=== PATIENT | male | born 1945 | race African-American/Black ===

== ENCOUNTER 2022-01-28 14:48 | Inpatient (IN) | payer OTHER ==
[~2022-01-28] VITALS: Ht 180.3 cm; Wt 86.2 kg
[2022-01-28] MEDS ORDERED: FUROSEMIDE 100MG/10ML VIAL IVP ONE (15:30)
[2022-01-28 16:57] LABS: HEMATOCRIT. 25.1 % (42.0-52.0); HEMOGLOBIN. 7.2 g/dL (14.0-18.0); MEAN CORPUSCULAR HEMOGLOBIN 24.7 pg (28.0-32.0); MEAN CORPUSCULAR VOLUME 85.8 fL (80.0-94.0); MEAN PLATELET VOLUME 8.3 fl (7.4-10.4); PLATELET 504 x1000/uL (130-400); RED BLOOD CELL COUNT 2.93 mill/uL (4.7-6.1); RED CELL DISTRIBUTION WIDTH 19.3 % (11.6-14.6)
[2022-01-28 17:04] LABS: CHLORIDE 104 mEq/L (98-107)
[2022-01-28] MEDS ORDERED: SODIUM CHLORIDE 0.9% 500 ML IV ONE (17:15)
[2022-01-28] MEDS ORDERED: AZITHROMYCIN 500 MG in DEXT 5% WATER 250 ML IV SCH (17:15)
[2022-01-28] MEDS ORDERED: CEFTRIAXONE 1 G PREMIX 50 ML IV ONE (17:15)
[2022-01-28] MEDS ORDERED: VANCOMYCIN 1G PREMIX 200 ML IV SCH (17:30)
[2022-01-28] MEDS ORDERED: SODIUM CHLORIDE 0.9% 1,000 ML IV ONE (17:30)
[2022-01-28] MEDS ORDERED: PIPERACILLIN/TAZOBACTAM 3.375GM/50ML PREMIX IV ONE (18:00)
[2022-01-28] MEDS ORDERED: PIPERACILLIN/TAZ 3.375G PREMIX 50 ML IV NR (18:15)
[2022-01-28 20:18] LABS: PLATELET ESTIMATE INCREASED
[2022-01-28 21:30] VITALS: BP 111/61
[2022-01-28 22:00] VITALS: BP 132/61
[2022-01-28] MEDS ORDERED: DIGOXIN 500MCG/2ML AMP IV NR (23:00)
[2022-01-28] MEDS ORDERED: ACETAMINOPHEN 325MG TABLET PO PRN (23:00)
[2022-01-28] MEDS: PIPERACILLIN/TAZOBACTAM 3.375 G in DEXTROSE 5% WATER 50 ML IV SCH (23:26)
[2022-01-28 23:28] LABS: BG BASE EXCESS -5.9 mmol/L (-2.0-2.0); BG CARBOXYHEMOGLOBIN 0.8 % (0.5-1.5); BG FRACTION INSPIRED OXYGEN 28; BG HCO3 ACT 16.7 mmol/L (22.0-26.0); BG METHEMOGLOBIN 0.2 % (0.0-1.5); BG OXYGEN SATURATION 93.9 % (92.0-98.5); BG PO2 71.9 mmHg (75.0-100.0); BG SAMPLE SITE RIGHT RADIAL; BG TOTAL HEMOGLOBIN 7.2 g/dL (12.0-18.0); BG VENT MODE NASAL CANNULA
[2022-01-28] MEDS: DEXT 5%/0.45% NACL 500ML 1,000 ML IV SCH (23:28)
[2022-01-28 23:30] LABS: HEMATOCRIT. 23.2 % (42.0-52.0); MEAN CORPUSCULAR HEMOGLOBIN 25.4 pg (28.0-32.0); MEAN CORPUSCULAR VOLUME 85.1 fL (80.0-94.0); MEAN PLATELET VOLUME 8.3 fl (7.4-10.4); PLATELET 459 x1000/uL (130-400); RED BLOOD CELL COUNT 2.73 mill/uL (4.7-6.1); RED CELL DISTRIBUTION WIDTH 19.1 % (11.6-14.6)
[2022-01-28] MEDS ORDERED: ENOXAPARIN 80MG/0.8ML SYR SUBCUT NR (23:30)
[2022-01-28 23:40] LABS: HEMOGLOBIN. 6.9 g/dL (14.0-18.0)
[2022-01-29] VITALS (17 sets, daily range): BP systolic 100–149; BP diastolic 53–97
[2022-01-29 00:15] LABS: T4 FREE 1.49 ng/dL (0.76-1.46)
[2022-01-29 02:19] LABS: INR 1.6; PROTHROMBIN TIME 16.1 sec (9.6-11.0)
[2022-01-29 02:31] LABS: PLATELET ESTIMATE INCREASED
[2022-01-29] MEDS: IPRATROPIUM/ALBUTEROL 0.5-3(2.5)MG/3ML NEB HHN SCH ×5 (05:19→20:08)
[2022-01-29] MEDS: PIPERACILLIN/TAZOBACTAM 3.375 G in DEXTROSE 5% WATER 50 ML IV SCH ×3 (05:58→21:15)
[2022-01-29] MEDS: PANTOPRAZOLE SODIUM 40 MG/VIAL IV SCH (08:40)
[2022-01-29] MEDS: AZITHROMYCIN 500 MG in DEXT 5% WATER 250 ML IV SCH (08:41)
[2022-01-29] MEDS ORDERED: ASPIRIN 81MG TABLET PO SCH (09:00)
[2022-01-29] MEDS ORDERED: NALOXONE HCL 0.4MG/ML VIAL IV PRN (13:45)
[2022-01-29] MEDS ORDERED: DEXTROSE 50% WATER 50ML SYRINGE IV PRN (14:15)
[2022-01-29] MEDS: DEXT 5%/0.45% NACL 500ML 1,000 ML IV SCH (15:12)
[2022-01-29] MEDS: BLOOD SUGAR DIAGNOSTIC STRIP TEST SCH ×2 (17:22→20:09)
[2022-01-29] MEDS: DILTIAZEM HCL 30MG TABLET PO SCH ×2 (17:28→23:30)
[2022-01-29] MEDS: INSULIN LISPRO 100 UNITS/ML SUBCUT SCH ×2 (17:29→21:15)
[2022-01-29] MEDS ORDERED: INSULIN LISPRO 100 UNITS/ML SUBCUT NR (17:30)
[2022-01-29] MEDS ORDERED: INSULIN LISPRO 100 UNITS/ML SUBCUT SCH (18:00)
[2022-01-29 18:28] LABS: HEMATOCRIT 25.3 % (42.0-52.0); HEMOGLOBIN 7.2 g/dL (14.0-18.0); MEAN CORPUSCULAR HEMOGLOBIN 25.8 pg (28.0-32.0); PLATELET 415 x1000/uL (130-400); RED CELL DISTRIBUTION WIDTH 19.2 % (11.6-14.6)
[2022-01-29] MEDS ORDERED: DEXT 5%/0.45% NACL 1000ML 1,000 ML IV SCH (18:30)
[2022-01-29 20:02] LABS: CLARITY URINE CLEAR (CLEAR); COLOR URINE YELLOW (YELLOW); KETONES URINE TRACE (NEGATIVE); LEUKOCYTE ESTERASE URINE NEGATIVE (NEGATIVE); NITRITE URINE NEGATIVE (NEGATIVE); OCCULT BLOOD URINE TRACE (NEGATIVE); PH URINE 5.5 (4.5-8.0); PROTEIN URINE 2+ (NEGATIVE); SPECIFIC GRAVITY URINE 1.016 (1.005-1.030); UROBILINOGEN URINE 0.2 E.U./dL (0.2-1.0)
[2022-01-29] MEDS: SODIUM CHLORIDE 0.45% 1,000 ML IV SCH (20:16)
[2022-01-29] MEDS ORDERED: ENOXAPARIN 80MG/0.8ML SYR SUBCUT SCH (23:30)
[2022-01-30] VITALS (16 sets, daily range): BP systolic 100–125; BP diastolic 52–67
[2022-01-30] MEDS: IPRATROPIUM/ALBUTEROL 0.5-3(2.5)MG/3ML NEB HHN SCH ×7 (00:48→23:42)
[2022-01-30] MEDS: PIPERACILLIN/TAZOBACTAM 3.375 G in DEXTROSE 5% WATER 50 ML IV SCH ×2 (05:35→13:06)
[2022-01-30] MEDS: SODIUM CHLORIDE 0.45% 1,000 ML IV SCH ×2 (05:35→17:57)
[2022-01-30] MEDS: DILTIAZEM HCL 30MG TABLET PO SCH ×3 (05:36→17:58)
[2022-01-30 05:47] LABS: FERRITIN 364 ng/mL (22-322)
[2022-01-30 05:52] LABS: CHLORIDE 103 mEq/L (98-107)
[2022-01-30 05:59] LABS: HEPATITIS B SURFACE ANTIGEN NEGATIVE
[2022-01-30 06:13] LABS: CREATINE KINASE 40 IU/L (39-308); GAMMA GLUTAMYL TRANSPEPTIDASE 77 IU/L (11-50); PHOSPHORUS 3.1 mg/dL (2.5-4.9)
[2022-01-30] MEDS ORDERED: MAGNESIUM 2 G PREMIX 50 ML IV ONE (06:45)
[2022-01-30 06:50] LABS: HEMATOCRIT. 28.7 % (42.0-52.0); MEAN CORPUSCULAR HEMOGLOBIN 26.2 pg (28.0-32.0); MEAN CORPUSCULAR VOLUME 83.7 fL (80.0-94.0); MEAN PLATELET VOLUME 8.3 fl (7.4-10.4); PLATELET 461 x1000/uL (130-400); RED BLOOD CELL COUNT 3.43 mill/uL (4.7-6.1); RED CELL DISTRIBUTION WIDTH 17.3 % (11.6-14.6)
[2022-01-30] MEDS ORDERED: MAGNESIUM SULFATE 3 GM in SODIUM CHLORIDE 0.9% 100 ML IV SCH (08:00)
[2022-01-30] MEDS: BLOOD SUGAR DIAGNOSTIC STRIP TEST SCH ×4 (08:24→20:50)
[2022-01-30] MEDS: AZITHROMYCIN 500 MG in DEXT 5% WATER 250 ML IV SCH (08:53)
[2022-01-30] MEDS: PANTOPRAZOLE SODIUM 40 MG/VIAL IV SCH (08:53)
[2022-01-30] MEDS: INSULIN LISPRO 100 UNITS/ML SUBCUT SCH ×4 (09:07→20:50)
[2022-01-30 10:42] LABS: PLATELET ESTIMATE INCREASED
[2022-01-30] MEDS ORDERED: CEFTRIAXONE 1 G PREMIX 50 ML IV SCH (14:30)
[2022-01-30 15:24] LABS: TOTAL IRON BINDING CAPACITY 151 ug/dL (250-450)
[2022-01-30 17:10] LABS: VITAMIN B12 SERUM > 2000 pg/mL (211-911)
[2022-01-30] MEDS ORDERED: LACTULOSE 20G/30ML UDC PO NR (17:15)
[2022-01-30] MEDS: METRONIDAZOLE 500MG TABLET PO SCH (20:49)
[2022-01-30] MEDS: CEFTRIAXONE 1,000 MG in DEXTROSE 5% WATER 50 ML IV SCH (20:49)
[2022-01-31] VITALS (17 sets, daily range): BP systolic 63–153; BP diastolic 47–74
[2022-01-31] MEDS: DILTIAZEM HCL 30MG TABLET PO SCH ×5 (00:34→23:20)
[2022-01-31] MEDS: SODIUM CHLORIDE 0.45% 1,000 ML IV SCH (00:34)
[2022-01-31] MEDS: IPRATROPIUM/ALBUTEROL 0.5-3(2.5)MG/3ML NEB HHN SCH ×4 (03:54→21:06)
[2022-01-31] MEDS: HYDROCODONE/ACETAMINOPHEN 5/325MG TABLET PO PRN (05:03)
[2022-01-31 05:53] LABS: HEMATOCRIT. 25.8 % (42.0-52.0); HEMOGLOBIN. 8.3 g/dL (14.0-18.0); MEAN CORPUSCULAR HEMOGLOBIN 26.7 pg (28.0-32.0); MEAN CORPUSCULAR VOLUME 82.9 fL (80.0-94.0); MEAN PLATELET VOLUME 8.1 fl (7.4-10.4); PLATELET 453 x1000/uL (130-400); RED BLOOD CELL COUNT 3.11 mill/uL (4.7-6.1); RED CELL DISTRIBUTION WIDTH 17.7 % (11.6-14.6)
[2022-01-31 06:07] LABS: PHOSPHORUS 3.5 mg/dL (2.5-4.9)
[2022-01-31] MEDS: METRONIDAZOLE 500MG TABLET PO SCH ×2 (08:06→20:40)
[2022-01-31] MEDS: AZITHROMYCIN 500 MG in DEXT 5% WATER 250 ML IV SCH (08:06)
[2022-01-31] MEDS: PANTOPRAZOLE SODIUM 40 MG/VIAL IV SCH (08:07)
[2022-01-31] MEDS: INSULIN LISPRO 100 UNITS/ML SUBCUT SCH ×4 (08:08→20:41)
[2022-01-31] MEDS: BLOOD SUGAR DIAGNOSTIC STRIP TEST SCH ×4 (08:08→21:00)
[2022-01-31] MEDS ORDERED: POTASSIUM CHLORIDE 20MEQ/PACKET PO SCH (09:00)
[2022-01-31 09:07] LABS: IMMUNOGLOBULIN A 387 mg/dL (61-437); IMMUNOGLOBULIN G 1121 mg/dL (603-1613); IMMUNOGLOBULIN M 77 mg/dL (15-143)
[2022-01-31] MEDS ORDERED: MAGNESIUM 2 G PREMIX 50 ML IV SCH (10:00)
[2022-01-31] MEDS: SODIUM CHLORIDE 0.9% 1,000 ML IV SCH ×2 (11:46→23:20)
[2022-01-31 12:54] LABS: NUCLEATED RED BLOOD CELLS 1 /100 WBC; PLATELET ESTIMATE INCREASED
[2022-01-31] MEDS: CEFTRIAXONE 1,000 MG in DEXTROSE 5% WATER 50 ML IV SCH (20:40)
[2022-02-01] VITALS (12 sets, daily range): BP systolic 101–144; BP diastolic 55–73
[2022-02-01] MEDS: IPRATROPIUM/ALBUTEROL 0.5-3(2.5)MG/3ML NEB HHN SCH ×6 (00:54→20:47)
[2022-02-01] MEDS: DILTIAZEM HCL 30MG TABLET PO SCH ×4 (05:32→23:43)
[2022-02-01 05:58] LABS: HEMATOCRIT. 25.8 % (42.0-52.0); HEMOGLOBIN. 8.3 g/dL (14.0-18.0); MEAN CORPUSCULAR HEMOGLOBIN 26.5 pg (28.0-32.0); MEAN CORPUSCULAR VOLUME 82.3 fL (80.0-94.0); MEAN PLATELET VOLUME 8.1 fl (7.4-10.4); PLATELET 488 x1000/uL (130-400); RED BLOOD CELL COUNT 3.14 mill/uL (4.7-6.1); RED CELL DISTRIBUTION WIDTH 17.4 % (11.6-14.6)
[2022-02-01] MEDS: HYDROCODONE/ACETAMINOPHEN 5/325MG TABLET PO PRN (08:23)
[2022-02-01] MEDS: BLOOD SUGAR DIAGNOSTIC STRIP TEST SCH ×4 (08:23→20:50)
[2022-02-01] MEDS: AZITHROMYCIN 500 MG in DEXT 5% WATER 250 ML IV SCH (08:23)
[2022-02-01] MEDS: METRONIDAZOLE 500MG TABLET PO SCH ×2 (08:23→20:50)
[2022-02-01] MEDS: PANTOPRAZOLE SODIUM 40 MG/VIAL IV SCH (08:24)
[2022-02-01] MEDS: INSULIN LISPRO 100 UNITS/ML SUBCUT SCH ×4 (08:42→20:49)
[2022-02-01 09:10] LABS: PLATELET ESTIMATE INCREASED
[2022-02-01] MEDS: SODIUM CHLORIDE 0.9% 1,000 ML IV SCH ×2 (12:38→23:43)
[2022-02-01 13:11] LABS: HIV SCREEN 4G Non Reactive (Non Reactive)
[2022-02-01] MEDS: CEFTRIAXONE 1,000 MG in DEXTROSE 5% WATER 50 ML IV SCH (20:50)
[2022-02-01] MEDS ORDERED: EPOETIN ALFA-EPBX 4,000 UNIT/ML VIAL SUBCUT NR (21:00)
[2022-02-02] VITALS (7 sets, daily range): BP systolic 107–119; BP diastolic 58–70
[2022-02-02] MEDS: IPRATROPIUM/ALBUTEROL 0.5-3(2.5)MG/3ML NEB HHN SCH ×6 (01:11→20:29)
[2022-02-02] MEDS: DILTIAZEM HCL 30MG TABLET PO SCH ×4 (05:58→23:29)
[2022-02-02 06:50] LABS: CHLORIDE 103 mEq/L (98-107)
[2022-02-02 06:52] LABS: MEAN CORPUSCULAR HEMOGLOBIN 26.5 pg (28.0-32.0); MEAN CORPUSCULAR VOLUME 82.3 fL (80.0-94.0); MEAN PLATELET VOLUME 7.9 fl (7.4-10.4); PLATELET 501 x1000/uL (130-400); RED CELL DISTRIBUTION WIDTH 17.3 % (11.6-14.6)
[2022-02-02] MEDS: BLOOD SUGAR DIAGNOSTIC STRIP TEST SCH ×4 (07:30→20:06)
[2022-02-02 07:47] LABS: PHOSPHORUS 4.3 mg/dL (2.5-4.9)
[2022-02-02] MEDS: AZITHROMYCIN 500 MG in DEXT 5% WATER 250 ML IV SCH (08:34)
[2022-02-02] MEDS: PANTOPRAZOLE SODIUM 40 MG/VIAL IV SCH (08:35)
[2022-02-02] MEDS: METRONIDAZOLE 500MG TABLET PO SCH ×2 (08:35→20:05)
[2022-02-02] MEDS: INSULIN LISPRO 100 UNITS/ML SUBCUT SCH ×4 (08:43→20:13)
[2022-02-02 08:51] LABS: PLATELET ESTIMATE INCREASED
[2022-02-02 09:07] LABS: QFT MITOGEN VALUE 0.02 IU/mL (.); QFT TB GOLD PLUS Indeterminate (Negative); QFT TB1 AG VALUE 0.03 IU/mL (.)
[2022-02-02] MEDS ORDERED: DOCUSATE SODIUM 250MG CAPSULE PO PRN (14:30)
[2022-02-02] MEDS: POLYETHYLENE GLYCOL 3350 (17GM) 1 DOSE PACK PO SCH (17:00)
[2022-02-02] MEDS: AMIODARONE HCL 200 MG TABLET PO SCH (17:33)
[2022-02-02] MEDS: SODIUM CHLORIDE 0.9% 1,000 ML IV SCH (17:33)
[2022-02-02] MEDS ORDERED: MAGNESIUM 2 G PREMIX 50 ML IV NR (18:00)
[2022-02-02 18:02] LABS: CLARITY URINE CLEAR (CLEAR); COLOR URINE YELLOW (YELLOW); KETONES URINE NEGATIVE (NEGATIVE); LEUKOCYTE ESTERASE URINE TRACE (NEGATIVE); NITRITE URINE NEGATIVE (NEGATIVE); OCCULT BLOOD URINE 2+ (NEGATIVE); PH URINE 5.5 (4.5-8.0); PROTEIN URINE 1+ (NEGATIVE); SPECIFIC GRAVITY URINE 1.009 (1.005-1.030); UROBILINOGEN URINE 0.2 E.U./dL (0.2-1.0)
[2022-02-02] MEDS: CEFTRIAXONE 1,000 MG in DEXTROSE 5% WATER 50 ML IV SCH (20:05)
[2022-02-03] VITALS (15 sets, daily range): BP systolic 98–127; BP diastolic 58–72
[2022-02-03] MEDS: IPRATROPIUM/ALBUTEROL 0.5-3(2.5)MG/3ML NEB HHN SCH ×6 (00:13→20:21)
[2022-02-03] MEDS: DILTIAZEM HCL 30MG TABLET PO SCH ×4 (05:02→23:15)
[2022-02-03] MEDS: SODIUM CHLORIDE 0.9% 1,000 ML IV SCH ×2 (05:10→18:02)
[2022-02-03 06:32] LABS: HEMATOCRIT. 28.6 % (42.0-52.0); HEMOGLOBIN. 9.1 g/dL (14.0-18.0); MEAN CORPUSCULAR HEMOGLOBIN 25.8 pg (28.0-32.0); MEAN CORPUSCULAR VOLUME 81.3 fL (80.0-94.0); MEAN PLATELET VOLUME 7.6 fl (7.4-10.4); PLATELET 555 x1000/uL (130-400); RED BLOOD CELL COUNT 3.51 mill/uL (4.7-6.1); RED CELL DISTRIBUTION WIDTH 17.6 % (11.6-14.6)
[2022-02-03 07:55] LABS: CHLORIDE 105 mEq/L (98-107)
[2022-02-03] MEDS: INSULIN LISPRO 100 UNITS/ML SUBCUT SCH ×4 (08:00→20:42)
[2022-02-03 08:10] LABS: PHOSPHORUS 4.4 mg/dL (2.5-4.9)
[2022-02-03] MEDS: BLOOD SUGAR DIAGNOSTIC STRIP TEST SCH ×4 (08:13→20:38)
[2022-02-03] MEDS: METRONIDAZOLE 500MG TABLET PO SCH ×2 (08:14→20:38)
[2022-02-03] MEDS: PANTOPRAZOLE SODIUM 40 MG/VIAL IV SCH (08:14)
[2022-02-03] MEDS: AMIODARONE HCL 200 MG TABLET PO SCH ×2 (08:14→17:58)
[2022-02-03] MEDS ORDERED: POLYETHYLENE GLYCOL 3350 (17GM) 1 DOSE PACK PO SCH (09:00)
[2022-02-03 10:40] LABS: PLATELET ESTIMATE INCREASED
[2022-02-03] MEDS: CITRIC ACID/SODIUM CITRATE SOLN 15ML UDC PO SCH ×2 (15:03→17:58)
[2022-02-03] MEDS: POLYETHYLENE GLYCOL 3350 (17GM) 1 DOSE PACK PO SCH (17:58)
[2022-02-03] MEDS: CEFTRIAXONE 1,000 MG in DEXTROSE 5% WATER 50 ML IV SCH (20:37)
[2022-02-04] VITALS (13 sets, daily range): BP systolic 110–153; BP diastolic 60–75
[2022-02-04] MEDS: IPRATROPIUM/ALBUTEROL 0.5-3(2.5)MG/3ML NEB HHN SCH ×6 (00:48→21:21)
[2022-02-04] MEDS: DILTIAZEM HCL 30MG TABLET PO SCH (05:34)
[2022-02-04 05:51] LABS: HEMATOCRIT. 27.3 % (42.0-52.0); HEMOGLOBIN. 8.7 g/dL (14.0-18.0); MEAN CORPUSCULAR HEMOGLOBIN 26.6 pg (28.0-32.0); MEAN CORPUSCULAR VOLUME 83.5 fL (80.0-94.0); MEAN PLATELET VOLUME 7.5 fl (7.4-10.4); PLATELET 602 x1000/uL (130-400); RED BLOOD CELL COUNT 3.26 mill/uL (4.7-6.1); RED CELL DISTRIBUTION WIDTH 17.7 % (11.6-14.6)
[2022-02-04] MEDS: BLOOD SUGAR DIAGNOSTIC STRIP TEST SCH ×4 (07:30→21:04)
[2022-02-04] MEDS: INSULIN LISPRO 100 UNITS/ML SUBCUT SCH ×4 (08:00→21:17)
[2022-02-04 08:52] LABS: CHLORIDE 105 mEq/L (98-107)
[2022-02-04 09:05] LABS: PHOSPHORUS 4.8 mg/dL (2.5-4.9)
[2022-02-04] MEDS: AMIODARONE HCL 200 MG TABLET PO SCH ×2 (09:05→17:42)
[2022-02-04] MEDS: METRONIDAZOLE 500MG TABLET PO SCH ×2 (09:05→21:17)
[2022-02-04] MEDS: PANTOPRAZOLE SODIUM 40 MG/VIAL IV SCH (09:05)
[2022-02-04] MEDS: SODIUM CHLORIDE 0.9% 1,000 ML IV SCH ×2 (09:05→21:17)
[2022-02-04] MEDS: CITRIC ACID/SODIUM CITRATE SOLN 15ML UDC PO SCH ×3 (09:05→17:42)
[2022-02-04 10:40] LABS: PLATELET ESTIMATE INCREASED
[2022-02-04] MEDS ORDERED: LIDOCAINE HCL/PF 1% 10 MG/ML 5ML VIAL ONE (12:36)
[2022-02-04] MEDS ORDERED: CEFTRIAXONE 1 G PREMIX 50 ML IV SCH (13:30)
[2022-02-04] MEDS: DILTIAZEM HCL 60MG TABLET PO SCH ×2 (14:32→21:21)
[2022-02-04] MEDS: CEFTRIAXONE 1,000 MG in DEXTROSE 5% WATER 50 ML IV SCH (15:26)
[2022-02-04] MEDS: POLYETHYLENE GLYCOL 3350 (17GM) 1 DOSE PACK PO SCH (16:54)
[2022-02-05] VITALS (12 sets, daily range): BP systolic 116–156; BP diastolic 59–77
[2022-02-05] MEDS: IPRATROPIUM/ALBUTEROL 0.5-3(2.5)MG/3ML NEB HHN SCH ×6 (00:59→19:54)
[2022-02-05] MEDS: DILTIAZEM HCL 60MG TABLET PO SCH ×3 (05:46→21:39)
[2022-02-05 06:09] LABS: HEMATOCRIT. 27.5 % (42.0-52.0); HEMOGLOBIN. 8.6 g/dL (14.0-18.0); MEAN CORPUSCULAR HEMOGLOBIN 26.2 pg (28.0-32.0); MEAN CORPUSCULAR VOLUME 84.1 fL (80.0-94.0); MEAN PLATELET VOLUME 7.5 fl (7.4-10.4); PLATELET 589 x1000/uL (130-400); RED BLOOD CELL COUNT 3.27 mill/uL (4.7-6.1); RED CELL DISTRIBUTION WIDTH 17.9 % (11.6-14.6)
[2022-02-05] MEDS: BLOOD SUGAR DIAGNOSTIC STRIP TEST SCH ×4 (07:30→21:34)
[2022-02-05 08:07] LABS: *CREATININE RANDOM URINE 38.1 mg/dL (Not Estab.); MICROALBUMIN RANDOM URINE 68.8 ug/mL (Not Estab.)
[2022-02-05] MEDS: AMIODARONE HCL 200 MG TABLET PO SCH ×2 (08:46→17:42)
[2022-02-05] MEDS: CITRIC ACID/SODIUM CITRATE SOLN 15ML UDC PO SCH ×3 (08:46→17:42)
[2022-02-05] MEDS: PANTOPRAZOLE SODIUM 40 MG/VIAL IV SCH (08:46)
[2022-02-05] MEDS: INSULIN LISPRO 100 UNITS/ML SUBCUT SCH ×4 (08:49→21:00)
[2022-02-05] MEDS ORDERED: DIATR MEGLU/DIATRIZOATE SOLN 120ML ONE (09:53)
[2022-02-05 10:43] LABS: CHLORIDE 107 mEq/L (98-107)
[2022-02-05 10:52] LABS: PHOSPHORUS 4.9 mg/dL (2.5-4.9)
[2022-02-05] MEDS: SODIUM CHLORIDE 0.9% 1,000 ML IV SCH (10:58)
[2022-02-05] MEDS: CEFTRIAXONE 1,000 MG in DEXTROSE 5% WATER 50 ML IV SCH (15:07)
[2022-02-05 15:53] LABS: PLATELET ESTIMATE INCREASED
[2022-02-05] MEDS: POLYETHYLENE GLYCOL 3350 (17GM) 1 DOSE PACK PO SCH (17:42)
[2022-02-06] VITALS (11 sets, daily range): BP systolic 119–139; BP diastolic 54–72
[2022-02-06] MEDS: SODIUM CHLORIDE 0.9% 1,000 ML IV SCH ×2 (00:20→15:24)
[2022-02-06] MEDS: DILTIAZEM HCL 60MG TABLET PO SCH ×3 (05:19→21:14)
[2022-02-06] MEDS: BLOOD SUGAR DIAGNOSTIC STRIP TEST SCH ×4 (07:30→20:59)
[2022-02-06] MEDS: INSULIN LISPRO 100 UNITS/ML SUBCUT SCH ×4 (08:00→21:14)
[2022-02-06] MEDS: IPRATROPIUM/ALBUTEROL 0.5-3(2.5)MG/3ML NEB HHN SCH ×4 (08:39→20:24)
[2022-02-06] MEDS: PANTOPRAZOLE SODIUM 40 MG/VIAL IV SCH (09:28)
[2022-02-06] MEDS: AMIODARONE HCL 200 MG TABLET PO SCH ×2 (09:28→18:42)
[2022-02-06] MEDS: CITRIC ACID/SODIUM CITRATE SOLN 15ML UDC PO SCH ×3 (09:28→18:42)
[2022-02-06] MEDS: FLUCONAZOLE 100MG TABLET PO SCH ×2 (13:19→15:38)
[2022-02-06] MEDS: CEFTRIAXONE 1,000 MG in DEXTROSE 5% WATER 50 ML IV SCH (15:23)
[2022-02-06] MEDS: ENOXAPARIN 80MG/0.8ML SYR SUBCUT SCH (15:37)
[2022-02-06] MEDS: POLYETHYLENE GLYCOL 3350 (17GM) 1 DOSE PACK PO SCH (17:00)
[2022-02-07] VITALS (14 sets, daily range): BP systolic 107–157; BP diastolic 55–79
[2022-02-07] MEDS: IPRATROPIUM/ALBUTEROL 0.5-3(2.5)MG/3ML NEB HHN SCH ×6 (04:00→20:16)
[2022-02-07] MEDS: DILTIAZEM HCL 60MG TABLET PO SCH ×3 (05:48→21:56)
[2022-02-07] MEDS: SODIUM CHLORIDE 0.9% 1,000 ML IV SCH ×2 (05:48→17:22)
[2022-02-07 06:42] LABS: HEMATOCRIT. 25.9 % (42.0-52.0); HEMOGLOBIN. 8.1 g/dL (14.0-18.0); MEAN CORPUSCULAR HEMOGLOBIN 25.6 pg (28.0-32.0); MEAN CORPUSCULAR VOLUME 81.9 fL (80.0-94.0); MEAN PLATELET VOLUME 7.6 fl (7.4-10.4); PLATELET 550 x1000/uL (130-400); RED BLOOD CELL COUNT 3.17 mill/uL (4.7-6.1)
[2022-02-07] MEDS: BLOOD SUGAR DIAGNOSTIC STRIP TEST SCH ×4 (07:30→21:56)
[2022-02-07] MEDS: INSULIN LISPRO 100 UNITS/ML SUBCUT SCH ×4 (08:00→21:57)
[2022-02-07 08:47] LABS: PLATELET ESTIMATE INCREASED
[2022-02-07] MEDS: CITRIC ACID/SODIUM CITRATE SOLN 15ML UDC PO SCH ×3 (09:02→17:22)
[2022-02-07] MEDS: ENOXAPARIN 80MG/0.8ML SYR SUBCUT SCH (09:02)
[2022-02-07] MEDS: PANTOPRAZOLE SODIUM 40 MG/VIAL IV SCH (09:03)
[2022-02-07] MEDS: AMIODARONE HCL 200 MG TABLET PO SCH ×2 (09:03→17:22)
[2022-02-07] MEDS: FLUCONAZOLE 100MG TABLET PO SCH (09:03)
[2022-02-07 10:33] LABS: BG BASE EXCESS -9.4 mmol/L (-2.0-2.0); BG CARBOXYHEMOGLOBIN 0.1 % (0.5-1.5); BG DEOXYHEMOGLOBIN 6.1 % (0.0-5.0); BG FRACTION INSPIRED OXYGEN 30; BG HCO3 ACT 14.4 mmol/L (22.0-26.0); BG METHEMOGLOBIN 0.3 % (0.0-1.5); BG OXYGEN SATURATION 93.9 % (92.0-98.5); BG OXYHEMOGLOBIN 93.5 % (94.0-97.0); BG PCO2 24.8 mmHg (35.0-45.0); BG PH 7.382 (7.350-7.450); BG PO2 73.6 mmHg (75.0-100.0); BG SAMPLE SITE LEFT RADIAL; BG TOTAL HEMOGLOBIN 8.9 g/dL (12.0-18.0); BG VENT MODE NASAL CANNULA
[2022-02-07] MEDS ORDERED: MAGNESIUM 2 G PREMIX 50 ML IV NR (12:00)
[2022-02-07] MEDS: CEFTRIAXONE 1,000 MG in DEXTROSE 5% WATER 50 ML IV SCH (14:50)
[2022-02-07] MEDS: POLYETHYLENE GLYCOL 3350 (17GM) 1 DOSE PACK PO SCH (17:21)
[2022-02-08] VITALS (12 sets, daily range): BP systolic 116–152; BP diastolic 54–74
[2022-02-08] MEDS: IPRATROPIUM/ALBUTEROL 0.5-3(2.5)MG/3ML NEB HHN SCH ×7 (00:40→23:56)
[2022-02-08] MEDS: SODIUM CHLORIDE 0.9% 1,000 ML IV SCH (05:45)
[2022-02-08] MEDS: DILTIAZEM HCL 60MG TABLET PO SCH ×3 (05:46→21:58)
[2022-02-08] MEDS: INSULIN LISPRO 100 UNITS/ML SUBCUT SCH ×4 (08:00→21:00)
[2022-02-08] MEDS: BLOOD SUGAR DIAGNOSTIC STRIP TEST SCH ×4 (08:21→21:46)
[2022-02-08] MEDS: FLUCONAZOLE 100MG TABLET PO SCH (09:47)
[2022-02-08] MEDS: AMIODARONE HCL 200 MG TABLET PO SCH ×2 (09:47→18:27)
[2022-02-08] MEDS: CITRIC ACID/SODIUM CITRATE SOLN 30ML UDC PO SCH ×3 (09:47→18:27)
[2022-02-08] MEDS: ENOXAPARIN 80MG/0.8ML SYR SUBCUT SCH (09:48)
[2022-02-08] MEDS: PANTOPRAZOLE SODIUM 40 MG/VIAL IV SCH (09:56)
[2022-02-08 11:27] LABS: BG BASE EXCESS -10.6 mmol/L (-2.0-2.0); BG CARBOXYHEMOGLOBIN 0.3 % (0.5-1.5); BG DEOXYHEMOGLOBIN 11.8 % (0.0-5.0); BG METHEMOGLOBIN 0.3 % (0.0-1.5); BG OXYGEN SATURATION 88.1 % (92.0-98.5); BG OXYHEMOGLOBIN 87.6 % (94.0-97.0); BG PCO2 22.5 mmHg (35.0-45.0); BG PO2 56.6 mmHg (75.0-100.0); BG SAMPLE SITE RIGHT RADIAL; BG TOTAL HEMOGLOBIN 9.5 g/dL (12.0-18.0); BG VENT MODE ROOM AIR
[2022-02-08 12:11] LABS: HEMATOCRIT. 26.4 % (42.0-52.0); HEMOGLOBIN. 8.1 g/dL (14.0-18.0); MEAN CORPUSCULAR HEMOGLOBIN 25.9 pg (28.0-32.0); MEAN CORPUSCULAR VOLUME 84.8 fL (80.0-94.0); MEAN PLATELET VOLUME 6.9 fl (7.4-10.4); PLATELET 609 x1000/uL (130-400); RED BLOOD CELL COUNT 3.11 mill/uL (4.7-6.1)
[2022-02-08 12:59] LABS: PHOSPHORUS 4.7 mg/dL (2.5-4.9)
[2022-02-08 13:17] LABS: PLATELET ESTIMATE INCREASED
[2022-02-08] MEDS: CEFTRIAXONE 1,000 MG in DEXTROSE 5% WATER 50 ML IV SCH (16:19)
[2022-02-08] MEDS: POLYETHYLENE GLYCOL 3350 (17GM) 1 DOSE PACK PO SCH (18:27)
[2022-02-08] MEDS: NETARSUDIL OP SCH (21:58)
[2022-02-08] MEDS: LATANOPROST OP SCH (21:58)
[2022-02-09] VITALS (12 sets, daily range): BP systolic 92–144; BP diastolic 57–71
[2022-02-09] MEDS: IPRATROPIUM/ALBUTEROL 0.5-3(2.5)MG/3ML NEB HHN SCH ×5 (03:59→21:45)
[2022-02-09] MEDS: DILTIAZEM HCL 60MG TABLET PO SCH ×3 (05:47→21:04)
[2022-02-09] MEDS: BLOOD SUGAR DIAGNOSTIC STRIP TEST SCH ×4 (07:30→20:51)
[2022-02-09 08:23] LABS: HEMOGLOBIN. 7.8 g/dL (14.0-18.0); MEAN CORPUSCULAR HEMOGLOBIN 25.8 pg (28.0-32.0); MEAN CORPUSCULAR VOLUME 83.4 fL (80.0-94.0); MEAN PLATELET VOLUME 6.7 fl (7.4-10.4); PLATELET 560 x1000/uL (130-400); RED CELL DISTRIBUTION WIDTH 18.2 % (11.6-14.6)
[2022-02-09] MEDS: AMIODARONE HCL 200 MG TABLET PO SCH ×2 (09:15→17:08)
[2022-02-09] MEDS: CITRIC ACID/SODIUM CITRATE SOLN 30ML UDC PO SCH ×3 (09:15→17:08)
[2022-02-09] MEDS: FLUCONAZOLE 100MG TABLET PO SCH (09:15)
[2022-02-09] MEDS: PANTOPRAZOLE SODIUM 40 MG/VIAL IV SCH (09:15)
[2022-02-09] MEDS: DOCUSATE SODIUM 100MG CAPSULE PO PRN (09:15)
[2022-02-09] MEDS: ENOXAPARIN 80MG/0.8ML SYR SUBCUT SCH (09:17)
[2022-02-09] MEDS: INSULIN LISPRO 100 UNITS/ML SUBCUT SCH ×4 (09:17→21:10)
[2022-02-09 13:34] LABS: PLATELET ESTIMATE INCREASED
[2022-02-09] MEDS: POLYETHYLENE GLYCOL 3350 (17GM) 1 DOSE PACK PO SCH (17:08)
[2022-02-09] MEDS ORDERED: CEFTRIAXONE 1,000 MG in DEXTROSE 5% WATER 50 ML IV SCH (18:00)
[2022-02-09] MEDS: NETARSUDIL OP SCH (21:04)
[2022-02-09] MEDS: LATANOPROST OP SCH (21:04)
[2022-02-10] VITALS (13 sets, daily range): BP systolic 126–152; BP diastolic 54–70
[2022-02-10] MEDS: IPRATROPIUM/ALBUTEROL 0.5-3(2.5)MG/3ML NEB HHN SCH ×6 (01:02→20:48)
[2022-02-10 04:20] LABS: HEMOGLOBIN. 7.5 g/dL (14.0-18.0); MEAN CORPUSCULAR HEMOGLOBIN 25.9 pg (28.0-32.0); MEAN CORPUSCULAR VOLUME 82.8 fL (80.0-94.0); MEAN PLATELET VOLUME 6.9 fl (7.4-10.4); PLATELET 535 x1000/uL (130-400); RED CELL DISTRIBUTION WIDTH 18.2 % (11.6-14.6)
[2022-02-10 04:29] LABS: CHLORIDE 108 mEq/L (98-107)
[2022-02-10 04:36] LABS: PHOSPHORUS 5.2 mg/dL (2.5-4.9)
[2022-02-10] MEDS: DILTIAZEM HCL 60MG TABLET PO SCH ×3 (05:00→21:30)
[2022-02-10] MEDS: INSULIN LISPRO 100 UNITS/ML SUBCUT SCH ×4 (08:00→21:07)
[2022-02-10] MEDS: BLOOD SUGAR DIAGNOSTIC STRIP TEST SCH ×4 (08:20→20:16)
[2022-02-10] MEDS: CITRIC ACID/SODIUM CITRATE SOLN 30ML UDC PO SCH ×3 (08:20→17:07)
[2022-02-10] MEDS: AMIODARONE HCL 200 MG TABLET PO SCH ×2 (08:21→17:08)
[2022-02-10] MEDS: PANTOPRAZOLE SODIUM 40 MG/VIAL IV SCH (08:21)
[2022-02-10] MEDS: DOCUSATE SODIUM 100MG CAPSULE PO PRN (08:21)
[2022-02-10] MEDS: FLUCONAZOLE 100MG TABLET PO SCH (08:21)
[2022-02-10] MEDS: ENOXAPARIN 80MG/0.8ML SYR SUBCUT SCH (08:21)
[2022-02-10 11:55] LABS: PLATELET ESTIMATE INCREASED
[2022-02-10] MEDS ORDERED: TETRACAINE/BENZOCAINE/BUTAMBEN 20 GM SPRAY MM NR (16:00)
[2022-02-10] MEDS: POLYETHYLENE GLYCOL 3350 (17GM) 1 DOSE PACK PO SCH (17:08)
[2022-02-10] MEDS: NETARSUDIL OP SCH (21:08)
[2022-02-10] MEDS: LATANOPROST OP SCH (21:08)
[2022-02-11] VITALS (16 sets, daily range): BP systolic 115–141; BP diastolic 54–69
[2022-02-11] MEDS: VISCOUS LIDOCAINE 2% 15 ML UDC MM PRN ×2 (00:31→22:51)
[2022-02-11] MEDS: IPRATROPIUM/ALBUTEROL 0.5-3(2.5)MG/3ML NEB HHN SCH ×7 (00:55→21:21)
[2022-02-11] MEDS: DILTIAZEM HCL 60MG TABLET PO SCH ×3 (05:09→21:38)
[2022-02-11 06:13] LABS: HEMATOCRIT. 24.4 % (42.0-52.0); HEMOGLOBIN. 7.3 g/dL (14.0-18.0); MEAN CORPUSCULAR HEMOGLOBIN 25.5 pg (28.0-32.0); MEAN CORPUSCULAR VOLUME 85.4 fL (80.0-94.0); MEAN PLATELET VOLUME 7.8 fl (7.4-10.4); PLATELET 467 x1000/uL (130-400); RED BLOOD CELL COUNT 2.85 mill/uL (4.7-6.1); RED CELL DISTRIBUTION WIDTH 18.9 % (11.6-14.6)
[2022-02-11] MEDS: BLOOD SUGAR DIAGNOSTIC STRIP TEST SCH ×4 (07:30→21:02)
[2022-02-11 07:31] LABS: CHLORIDE 109 mEq/L (98-107)
[2022-02-11 07:51] LABS: PHOSPHORUS 5.6 mg/dL (2.5-4.9)
[2022-02-11] MEDS: INSULIN LISPRO 100 UNITS/ML SUBCUT SCH ×4 (08:55→21:00)
[2022-02-11] MEDS: CITRIC ACID/SODIUM CITRATE SOLN 30ML UDC PO SCH ×3 (08:56→16:51)
[2022-02-11] MEDS: PANTOPRAZOLE SODIUM 40 MG/VIAL IV SCH (08:56)
[2022-02-11] MEDS: AMIODARONE HCL 200 MG TABLET PO SCH ×2 (08:57→18:29)
[2022-02-11] MEDS: FLUCONAZOLE 100MG TABLET PO SCH (08:57)
[2022-02-11] MEDS: ENOXAPARIN 80MG/0.8ML SYR SUBCUT SCH (09:00)
[2022-02-11] MEDS: POLYETHYLENE GLYCOL 3350 (17GM) 1 DOSE PACK PO SCH (18:29)
[2022-02-11] MEDS: LATANOPROST OP SCH (20:50)
[2022-02-11] MEDS: NETARSUDIL OP SCH (20:50)
[2022-02-11 20:52] LABS: PLATELET ESTIMATE INCREASED
[2022-02-12] VITALS (11 sets, daily range): BP systolic 123–153; BP diastolic 65–80
[2022-02-12] MEDS: IPRATROPIUM/ALBUTEROL 0.5-3(2.5)MG/3ML NEB HHN SCH ×4 (00:50→13:12)
[2022-02-12] MEDS: DILTIAZEM HCL 60MG TABLET PO SCH ×2 (06:22→14:00)
[2022-02-12] MEDS: BLOOD SUGAR DIAGNOSTIC STRIP TEST SCH ×2 (07:39→12:30)
[2022-02-12] MEDS: CITRIC ACID/SODIUM CITRATE SOLN 30ML UDC PO SCH ×2 (08:17→13:00)
[2022-02-12] MEDS: PANTOPRAZOLE SODIUM 40 MG/VIAL IV SCH (08:17)
[2022-02-12] MEDS: ENOXAPARIN 80MG/0.8ML SYR SUBCUT SCH (08:17)
[2022-02-12] MEDS: FLUCONAZOLE 100MG TABLET PO SCH (08:18)
[2022-02-12] MEDS: INSULIN LISPRO 100 UNITS/ML SUBCUT SCH ×2 (08:19→13:00)
[2022-02-12] MEDS: AMIODARONE HCL 200 MG TABLET PO SCH (08:45)
[2022-02-12] MEDS ORDERED: FOLIC ACID/VITAMIN B COMP W-C TABLET PO SCH (09:00)
[2022-02-12 11:05] LABS: HEMATOCRIT. 28.6 % (42.0-52.0); HEMOGLOBIN. 8.8 g/dL (14.0-18.0); MEAN CORPUSCULAR HEMOGLOBIN 25.8 pg (28.0-32.0); MEAN CORPUSCULAR VOLUME 83.3 fL (80.0-94.0); MEAN PLATELET VOLUME 6.8 fl (7.4-10.4); PLATELET 550 x1000/uL (130-400); RED BLOOD CELL COUNT 3.43 mill/uL (4.7-6.1); RED CELL DISTRIBUTION WIDTH 18.2 % (11.6-14.6)
[2022-02-12 11:55] LABS: PLATELET ESTIMATE INCREASED
[2022-04-07] MEDS ORDERED: FLUCONAZOLE 100MG TABLET PO SCH (09:00)
== END 2022-02-12 17:13 | DRG 871 ==
LOC: ER 15:43 → EDBEDREQ 17:16 → 5EST 18:04 → EDBEDREQ 18:10 → EDBEDREQSVC 18:10 → EDBEDREQTM 18:10 → ENRESERV 22:03 → 5EST 01-29 06:20
PROVIDERS: ADMIT Internal Medicine; ATTEND Internal Medicine
PROC: 30233N1 Transfusion of Nonautologous Red Blood Cells into Peripheral Vein, Percutaneous Approach (ICD-10-PCS; 2022-01-29)
PROC: 02HV33Z Insertion of Infusion Device into Superior Vena Cava, Percutaneous Approach (ICD-10-PCS; principal; 2022-02-04)
PROC: B548ZZA Ultrasonography of Superior Vena Cava, Guidance (ICD-10-PCS; 2022-02-04)
DX: A41.9 Sepsis, unspecified organism (principal); E43 Unspecified severe protein-calorie malnutrition; J18.9 Pneumonia, unspecified organism; J96.91 Respiratory failure, unspecified with hypoxia; I13.0 Hypertensive heart and chronic kidney disease with heart failure and stage 1 through stage 4 chronic kidney disease, or unspecified chronic kidney disease; N17.9 Acute kidney failure, unspecified; E87.1 Hypo-osmolality and hyponatremia; E87.3 Alkalosis; D68.9 Coagulation defect, unspecified; E87.4 Mixed disorder of acid-base balance; B38.0 Acute pulmonary coccidioidomycosis; D63.1 Anemia in chronic kidney disease; I50.9 Heart failure, unspecified; Z20.822 Contact with and (suspected) exposure to COVID-19; R65.20 Severe sepsis without septic shock; I48.91 Unspecified atrial fibrillation; N18.9 Chronic kidney disease, unspecified; E78.00 Pure hypercholesterolemia, unspecified; E78.5 Hyperlipidemia, unspecified; E11.22 Type 2 diabetes mellitus with diabetic chronic kidney disease; K80.20 Calculus of gallbladder without cholecystitis without obstruction; E66.9 Obesity, unspecified; D50.9 Iron deficiency anemia, unspecified; D72.829 Elevated white blood cell count, unspecified; E83.42 Hypomagnesemia; I44.0 Atrioventricular block, first degree; E53.8 Deficiency of other specified B group vitamins; Z68.26 Body mass index [BMI] 26.0-26.9, adult; Z85.46 Personal history of malignant neoplasm of prostate; Z87.11 Personal history of peptic ulcer disease; Z78.9 Other specified health status; Z79.899 Other long term (current) drug therapy; Z82.49 Family history of ischemic heart disease and other diseases of the circulatory system
CPT/HCPCS: 36415; 36573; 36600; 71045; 71250; 74176; 76700; 76770; 80048; 80053; 80061; 80076; 81003; 82043; 82270; 82375; 82533; 82550; 82570; 82607; 82728; 82746; 82784; 82805; 82962; 82977; 83540; 83550; 83605; 83615; 83735; 83880; 83935; 84100; 84145; 84156; 84300; 84439; 84443; 84484; 85018; 85025; 85027; 85044; 86334; 86480; 86635; 86698; 86705; 86709; 86803; 86850; 86900; 86920; 87116; 87340; 87389; 87426; 87804; 87899; 93005; 93306; 93970; 93971; 94640; 97162; 97166; 97535; 99291; C1725; C9113; C9803; J0456; J0696; J0885; J1160; J1650; J1815; J2543; J3370; J3475; J3490; J7030; J7040; J7050; J7060; P9016; Q9963; A4315